=== PATIENT | male | born 1980 | race Caucasian/White ===

== ENCOUNTER 2017-10-07 09:09 | Emergency (ER) | payer BC, SELFPAY ==
[2017-10-07 09:14] VITALS: BP 157/113; PULSE 98; RESP 22; TEMP 36.7; O2SAT 97; BMI 40.5
[2017-10-07 09:15] VITALS: PULSE 77; RESP 18; O2SAT 98
--- NOTE | 2017-10-07 09:21 | DI.RAD.S_ITS ---
PROCEDURE: XR CHEST 2V INDICATIONS: SOB TECHNIQUE: 2 views of the chest were acquired. COMPARISON: None. FINDINGS: Surgical changes and devices: None. Lungs and pleura: No pleural effusions or pneumothorax. Lungs are clear. Mediastinum: Mediastinal contours are normal. Heart size is normal. Bones and chest wall: No suspicious bony abnormalities. Soft tissues appear unremarkable. IMPRESSION: Negative chest. No acute cardiopulmonary process is evident. Dictated by: Tirso Andino M.D. on 10/07/2017 at 9:30 Approved by: Tirso Andino M.D. on 10/07/2017 at 9:31
[2017-10-07 09:25] VITALS: PULSE 83; RESP 18; O2SAT 98
[2017-10-07] MEDS: ALBUTEROL/IPRATROPIUM 3 ML AMPUL INH (09:27)
[2017-10-07] MEDS: ALBUTEROL 2.5 MG/3 ML NEB INH ×2 (09:44)
[2017-10-07] MEDS: predniSONE 20 MG TABLET 40 MG PO (09:54)
--- NOTE | 2017-10-07 10:13 | ED_ITS ---
HPI - SOB/Dyspnea General Chief Complaint: Shortness of Breath/Dyspnea Stated Complaint: BREATHING ISSUES,CHEST PAIN,SHORTNESS OF BREATH Time Seen by Provider: 10/07/17 09:12 Source: patient Mode of arrival: ambulatory Limitations: no limitations History of Present Illness 36-year-old male, otherwise healthy, presents to Emergency with chief complaint of shortness of breath, cough and sharp anterior chest pain since yesterday. His symptoms started after mowing the lawn and he admits to seasonal allergies. He states his cough is worse with a deep breath and his sharp chest pain is worse with a deep breath or motion of his torso. He is not dizzy nor weak or lightheaded. He denies fever or chills. Sometimes his sputum is yellowish MD Complaint: shortness of breath, cough and pain with inspiration Onset (ago): hour(s) Severity: mild Consistency/Duration: constant Relieving factors: bronchodilators Exacerbating factors: coughing and deep breaths Associated symptoms: chest pain, pain with inspiration, cough and wheezing Related Data Home Medications Medication Instructions Recorded Confirmed loratadine [Claritin] 10 mg PO DAILY PRN 10/07/17 10/07/17 Previous Rx's Medication Instructions Recorded albuterol sulfate 2 puff INHALATION Q4-6H PRN #8 gram 10/07/17 inhaler,assist devices,access #1 each 10/07/17 prednisone See Label Instructions PO PER PKG 10/07/17 DIR #21 each Allergies Allergy/AdvReac Type Severity Reaction Status Date / Time No Known Drug Allergies Allergy Verified 10/07/17 09:25 Review of Systems Review of Systems All systems reviewed & are unremarkable except as noted in HPI and below Constitutional Denies chills, Denies fever(s), Denies lethargy and Denies weakness Eyes Denies change in vision, Denies eye discharge, Denies irritation and Denies loss of vision ENT Ears, Nose, Mouth, and Throat: Denies change in voice, Denies neck pain and Denies sore throat Cardiovascular Reports chest pain, Denies irregular heart rhythm, Denies lightheadedness, Denies palpitations, Reports dyspnea, Denies dyspnea on exertion and Denies orthopnea Respiratory Reports change in phlegm color, Reports chest congestion, Reports cough, Reports dyspnea, Denies dyspnea on exertion and Denies wheezing Gastrointestinal Gastrointestinal: Denies abdominal pain, Denies change in bowel habits, Denies diarrhea, Denies nausea and Denies vomiting Genitourinary Denies hematuria, Denies flank pain, Denies urinary incontinence and Denies urinary urgency Musculoskeletal Denies neck pain Integumentary/Breasts Denies pruritus, Denies erythema, Denies rash and Denies wounds Neurologic Denies confusion, Denies loss of vision and Denies weakness Psychiatric Denies anxiety, Denies confusion, Denies depression, Denies homicidal ideation and Denies suicidal ideation Endocrine Denies palpitations Hematologic/Lymphatic Denies easy bruising Allergic/Immunologic Denies wheezing PFSH Social History Smoking Status: Never smoker Exam Narrative Exam Narrative: Pleasant 36-year-old male with some bronchospastic cough in mild distress Initial Vital Signs Initial Vital Signs: Vital Signs Temperature 98.0 F 10/07/17 09:14 Pulse Rate 98 H 10/07/17 09:14 Respiratory Rate 22 10/07/17 09:14 Blood Pressure 157/113 H 10/07/17 09:14 Pulse Oximetry 97 10/07/17 09:14 Const General: cooperative, well developed and in distress Nutritional Appearance: well nourished Orientation: alert, awake, oriented x3 and not confused Eyes General: appearance normal, both eyes and all related structures Eyelids: eyelids normal Conjunctivae: conjunctivae normal Sclera: sclerae normal Pupils: PERRL EOM: EOM intact bilaterally Chest Other: Reproducible, sharp anterior chest pain Resp Effort & Inspection: normal respiratory effort, able to speak in complete sentences, audible wheezes, no respiratory distress and no use of accessory muscles Auscultation: crackles, no rales, no rhonchi and wheezes Cardio Rate: regular rate Rhythm: regular rhythm Heart Sounds: no click, no gallops, no murmurs and no rubs Pulses: normal peripheral pulses Back/Spine/Pelvis Back: No CVA tenderness Cervical Spine: cervical ROM normal and No pain with cervical ROM Thoracic/Lumbar Spine: thoracic and lumbar spine normal to inspection Neuro General: alert, oriented x3, gait normal and no focal motor deficits Speech: speech normal Psych Appearance: well kempt Mental Status: mental status grossly normal Attitude: cooperative Thought Content: normal and suicidality Judgment: judgment good Course Orders Ordered: Discontinued Medications Albuterol (Ventolin) 2.5 mg INH NOW ONE Stop: 10/07/17 09:38 Last Admin: 10/07/17 09:44 Dose: 2.5 mg Albuterol (Ventolin) 2.5 mg INH NOW ONE Stop: 10/07/17 09:40 Last Admin: 10/07/17 09:44 Dose: 2.5 mg Albuterol/Ipratropium (Duoneb) 3 ml INH NOW ONE Stop: 10/07/17 09:21 Last Admin: 10/07/17 09:27 Dose: 3 ml Prednisone (Deltasone) 40 mg PO NOW ONE Stop: 10/07/17 09:21 Last Admin: 10/07/17 09:54 Dose: 40 mg Reevaluation(s) Reevaluation #1: Patient feels tremendous improvement after bronchodilators and steroids. Time: 10:10 Vital Signs - 8 hr 10/07/17 09:14 10/07/17 09:28 Temperature 98.0 F Pulse Rate 98 H 83 Respiratory Rate 22 18 Blood Pressure 157/113 H Pulse Oximetry 97 98 MDM - SOB/Dyspnea ECG Data Attestation: I personally reviewed and interpreted this ECG as follows: Prior ECG tracings: not available for review Interpretation: Normal sinus rhythm at 87 without signs of ectopy or ischemia such as ST elevations or depressions nor T-wave abnormalities MDM Narrative Medical decision making narrative: Patient complains of wheezing and cough as well as reproducible chest pain with cough and deep breath. He has seasonal allergies and was exposed to significant pollen and allergens yesterday. He shows improvement with bronchodilators and steroids. No pneumonia on chest x- ray. Normal sinus rhythm without ischemia on EKG. Discharge Plan Departure Patient Disposition: Home, Self-Care Clinical Impression: Bronchitis with bronchospasm Discharge Date/Time: 10/07/17 10:34 Interventions: ED Discharge Assessment Last Done: 10/07/17 10:33 Instructions: DI for Acute Bronchitis Activity Restrictions/Additional Instructions: *You have been diagnosed with [ bronchitis with bronchospasm ] *What to do: *Take medications as directed. A group of prescriptions have been electronically transmitted to the [facility] in and [employer] at your request *Follow up with your primary care provider in 2-3 days *Return to ER if you should have any new, worsening or concerning symptoms Prescriptions: New prednisone 10 mg tablets,dose pack See Label Instructions PO PER PKG DIR Qty: 21 RF: 0 albuterol sulfate 90 mcg/actuation HFA aerosol inhaler 2 puff INHALATION Q4-6H PRN (Reason: shortness of breath or wheezing) Qty: 8 RF: 0 inhaler,assist devices,access device .ROUTE .MEDSUPPLY Qty: 1 RF: 0 No Action loratadine [Claritin] 10 mg Tablet 10 mg PO DAILY PRN (Reason: Allergy Symptoms) RF: 0
[2017-10-07 10:33] VITALS: BP 135/90; PULSE 90; RESP 20; O2SAT 95
== END 2017-10-07 10:34 | disposition home or self-care (01) ==
PROVIDERS: Emergency Provider Emergency Medicine; PCP Family Medicine
DX: J20.9 Acute bronchitis, unspecified (principal)
CPT/HCPCS: 71046; 93005; 94640; 99282; 99284; J7613

== ENCOUNTER 2019-09-14 20:50 | Emergency (ER) | payer BC, SELFPAY ==
[2019-09-14 21:00] VITALS: BP 141/75; PULSE 105; RESP 20; TEMP 37.5; O2SAT 98; BMI 44.4
--- NOTE | 2019-09-14 21:17 | PC.NURSE ---
repors being on a tractor and noticing a day or so later that his left leg is red and painful on the garcia. He states he has had increasing fatigue with nausea for a few days and started vomiting today. Denies chest pains. states he is able to sleep flat. speaks in full sentences.
[2019-09-14 21:19] LABS: Add Manual Diff / Slide Review NO; Basophils Absolute Auto 100 /uL (0-100); Basophils Percent Auto 0.5 % (0-2); Eosinophils Absolute Auto 0 /uL (0-450); Eosinophils Percent Auto 0.4 % (2-4); Hematocrit 44.1 % (41-53); Hemoglobin 15.4 g/dL (13.5-17.5); Lymphocytes Absolute Auto 1900 /uL (1100-4500); Lymphocytes Percent Auto 15.1 % (25-40); Mean Corpuscular HGB Conc 34.9 % (30-36); Mean Corpuscular Hemoglobin 28.5 PG (26-34); Mean Corpuscular Volume 81.7 fL (80-100); Monocytes Absolute Auto 1100 /uL (0-900); Monocytes Percent Auto 8.5 % (3-14); Neutrophils Absolute Auto 9500 /uL (1500-7000); Neutrophils Percent Auto 75.5 % (50-75); Platelet Count 215 X10^3/uL (150-400); Red Blood Cell Count 5.39 X10^6/uL (4.5-5.9); Red Cell Distribution Width 14.2 % (11.6-14.8); White Blood Cell Count 12.6 X10^3/uL (4.5-11.0)
--- NOTE | 2019-09-14 21:22 | PC.NURSE ---
rash present from sock line to half way up lower leg. Present circumstantially
[2019-09-14] MEDS: KETOROLAC 60 MG/2 ML VIAL 15 MG IV (21:30)
[2019-09-14] MEDS: CEFAZOLIN 1 GM/50 ML FROZ.PIGGY IV (21:31)
[2019-09-14] MEDS: SODIUM CHLORIDE 0.9% 1,000 ML 1000 ML IV (21:31)
[2019-09-14 21:33] LABS: Blood Urea Nitrogen 16 mg/dL (9-20); Carbon Dioxide 27 mmol/L (22-32); Chloride 99 mmol/L (98-107); Estimated Glomerular Filt Rate > 60.0 mL/min (>60); Glucose 141 mg/dL (70-100); HEMOLYSIS < 15 (0-50); Potassium 3.3 mmol/L (3.4-5.1); Sodium 136 mmol/L (137-145)
--- NOTE | 2019-09-14 21:34 | ED_ITS ---
HPI - Fever General Chief Complaint: Fever Stated Complaint: pain/ rash on leg/ vomiting/fever 2xdays Time Seen by Provider: 09/14/19 21:00 Source: family Mode of arrival: Ambulatory Limitations: no limitations History of Present Illness HPI Narrative: 38-year-old male nonsmoker with morbid obesity presents with left leg pain, and redness on his anterior garcia. He has had subjective fever and chills as well as nausea and 1 episode of vomiting. He denies any runny nose, sore throat or cough. He denies any chest pain or shortness of breath. He denies any history of skin infection. He does have some superficial abrasions on his garcia. Related Data Home Medications Medication Instructions Recorded Confirmed loratadine [Claritin] 10 mg PO DAILY PRN 10/07/17 10/07/17 Previous Rx's Medication Instructions Recorded albuterol sulfate 2 puff INHALATION Q4-6H PRN #8 gram 10/07/17 inhaler,assist devices,access #1 each 10/07/17 prednisone See Rx Instructions PO PER PKG DIR 10/07/17 #21 each cephalexin [Keflex] 500 mg PO QID 7 Days #28 cap 09/14/19 ketorolac 10 mg PO Q6H PRN #14 tab 09/14/19 Allergies Allergy/AdvReac Type Severity Reaction Status Date / Time No Known Drug Allergies Allergy Verified 10/07/17 09:25 Review of Systems Constitutional Constitutional: Reports chills, Denies fatigue, Reports fever(s), Denies frequent falls, Denies lethargy and Denies weakness Eyes Eyes: Denies change in vision, Denies eye discharge, Denies irritation and Denies loss of vision ENT Ears, Nose, Mouth, and Throat: Denies change in voice, Denies dizziness, Denies neck pain, Denies sore throat and Denies throat swelling Cardiovascular Cardiovascular: Denies chest pain, Denies irregular heart rhythm, Denies lightheadedness, Denies palpitations, Denies dyspnea, Denies dyspnea on exertion and Denies orthopnea Respiratory Respiratory: Denies cough, Denies dyspnea, Denies dyspnea on exertion and Denies wheezing Gastrointestinal Gastrointestinal: Denies abdominal pain, Denies change in bowel habits, Denies diarrhea, Reports nausea and Reports vomiting Genitourinary Genitourinary: Denies hematuria, Denies flank pain, Denies urinary incontinence and Denies urinary urgency Musculoskeletal Musculoskeletal: Denies back pain, Denies muscle weakness, Denies neck pain, Denies numbness and Denies tingling Integumentary/Breasts Skin/Breast: Denies pruritus, Reports erythema, Denies rash, Reports skin pain and Denies wounds Neurologic Neurologic: Denies behavioral changes, Denies confusion, Denies dizziness, Denies frequent falls, Denies loss of vision, Denies numbness, Denies tingling and Denies weakness Psychiatric Psychiatric: Denies anxiety, Denies behavioral changes, Denies confusion, Denies depression, Denies homicidal ideation and Denies suicidal ideation Endocrine Endocrine: Denies fatigue, Denies flushing and Denies palpitations Hematologic/Lymphatic Hematologic/Lymphatic: Denies easy bruising Allergic/Immunologic Allergic/Immunologic: Denies urticaria, Denies throat swelling and Denies wheezing Patient History Social History Smoking Status: Never smoker Smoking Status: Never smoker alcohol intake frequency: 0-2 drinks per day Substance Use Type: does not use Exam Narrative Exam Narrative: GENERAL: [38] year old patient appears stated age. Well- nourished, well-developed patient, in mild distress. HEAD: Atraumatic. Normocephalic. EYES: Pupils equal round and reactive. Extraocular motions intact. No scleral icterus. No injection or drainage. ENT: Nose without bleeding, purulent drainage. Throat without erythema, tonsillar hypertrophy or exudate. Airway patent. NECK: Trachea midline. Non tender CARDIOVASCULAR: Regular rate and rhythm without murmurs, gallops, or rubs. RESPIRATORY: Clear to auscultation. Breath sounds equal bilaterally. No wheezes, rales, or rhonchi. GASTROINTESTINAL: Abdomen soft, non-tender, nondistended. EXTREMITIES: No edema or joint tenderness. BACK: Nontender without deformity or crepitance. No flank tenderness. NEURO: AOx3. SKIN: Redness warmth and tenderness to left anterior garcia without any induration or fluctuance. No drainage. No lymphangitis. Initial Vital Signs Initial Vital Signs: Vital Signs Temperature 99.5 F 09/14/19 21:00 Pulse Rate 105 H 09/14/19 21:00 Respiratory Rate 09/14/19 21:00 Blood Pressure 141/75 H 09/14/19 21:00 Pulse Oximetry 98 09/14/19 21:00 Course Orders Ordered: Discontinued Medications Sodium Chloride (Normal Saline 0.9%) 1,000 mls @ 1,000 mls/hr IV BOLUS ONE Stop: 09/14/19 22:11 Last Infusion: 09/14/19 22:34 Dose: 0 mls/hr Documented by: Admin: 09/14/19 21:31 Dose: 1,000 mls/hr Documented by: ROB Cefazolin Sodium/Dextrose (Ancef) 1 gm in 50 mls @ 200 mls/hr IV NOW ONE Stop: 09/14/19 21:26 Last Infusion: 09/14/19 21:53 Dose: 0 mls/hr Documented by: Admin: 09/14/19 21:31 Dose: 200 mls/hr Documented by: ROB Ketorolac Tromethamine (Toradol) 15 mg IV NOW ONE Stop: 09/14/19 21:13 Last Admin: 09/14/19 21:30 Dose: 15 mg Documented by: ROB Vital Signs Vital signs: Vital Signs - 8 hr 09/14/19 22:36 Temperature 98.8 F Pulse Rate 81 Respiratory Rate 19 Blood Pressure 121/65 Pulse Oximetry 98 MDM - Fever Lab Data Result diagrams: 09/14/19 21:10 09/14/19 21:10 Labs: Lab Results 09/14/19 09/14/19 09/14/19 Range/Units 21:10 21:10 21:10 WBC 12.6 H (4.5-11.0) X10^3/uL RBC 5.39 (4.5-5.9) X10^6/uL Hgb 15.4 (13.5-17.5) g/dL Hct 44.1 (41-53) % MCV 81.7 (80-100) fL MCH 28.5 (26-34) PG MCHC 34.9 (30-36) % RDW 14.2 (11.6-14.8) % Plt Count 215 (150-400) X10^3/uL Neut % (Auto) 75.5 H (50-75) % Lymph % (Auto) 15.1 L (25-40) % [place] % (Auto) 8.5 (3-14) % Eos % (Auto) 0.4 L (2-4) % Baso % (Auto) 0.5 (0-2) % Neut # (Auto) 9500 H (6626-5794) /uL Lymph # (Auto) 1900 (1544-9650) /uL [place] # (Auto) 1100 H (0-900) /uL Eos # (Auto) 0 (0-450) /uL Baso # (Auto) 100 (0-100) /uL Sodium 136 L (137-145) mmol/L Potassium 3.3 L (3.4-5.1) mmol/L Chloride 99 (98-107) mmol/L Carbon Dioxide 27 (22-32) mmol/L BUN 16 (9-20) mg/dL Creatinine 0.80 (0.66-1.25) mg/dL Estimated GFR > 60.0 (>60) mL/min BUN/Creatinine Ratio 20.0 (6-22) Glucose 141 H (70-100) mg/dL Hemoglobin A1c (4.0-6.0) % Calcium 9.0 (8.4-10.2) mg/dL Procalcitonin 11.81 H (<0.5) ng/mL /18/20 Range/Units 21:10 WBC (4.5-11.0) X10^3/uL RBC (4.5-5.9) X10^6/uL Hgb (13.5-17.5) g/dL Hct (41-53) % MCV (80-100) fL MCH (26-34) PG MCHC (30-36) % RDW (11.6-14.8) % Plt Count (150-400) X10^3/uL Neut % (Auto) (50-75) % Lymph % (Auto) (25-40) % [place] % (Auto) (3-14) % Eos % (Auto) (2-4) % Baso % (Auto) (0-2) % Neut # (Auto) (1913-7887) /uL Lymph # (Auto) (9570-5313) /uL [place] # (Auto) (0-900) /uL Eos # (Auto) (0-450) /uL Baso # (Auto) (0-100) /uL Sodium (137-145) mmol/L Potassium (3.4-5.1) mmol/L Chloride (98-107) mmol/L Carbon Dioxide (22-32) mmol/L BUN (9-20) mg/dL Creatinine (0.66-1.25) mg/dL Estimated GFR (>60) mL/min BUN/Creatinine Ratio (6-22) Glucose (70-100) mg/dL Hemoglobin A1c 6.1 H (4.0-6.0) % Calcium (8.4-10.2) mg/dL Procalcitonin (<0.5) ng/mL Point of Care Testing Glucose POC 112 MDM Narrative Medical decision making narrative: Patient with left anterior garcia cellulitis and fever. The patient is not septic nor immunocompromised. Patient feels much better after above-stated therapies. Return precautions given questions answered to his apparent satisfaction Discharge Plan Departure Patient Disposition: Home Clinical Impression: Cellulitis Qualifiers: Site of cellulitis: extremity Site of cellulitis of extremity: lower extremity Laterality: left Qualified Code(s): L03.116 - Cellulitis of left lower limb Discharge Date/Time: 09/14/19 22:38 Instructions: DI for Cellulitis -- Adult, DI for Fever (Symptom) -- Adult Activity Restrictions/Additional Instructions: *You have been diagnosed with [cellulitis left lower extremity] *What to do: *Take medications as directed *Follow up with your primary care provider in 2-3 days, call for an appointment. Let them know you were seen in the Emergency Department and that we ask that you be seen in follow up *Return to ER if you should have any new, worsening or concerning symptoms Prescriptions: New cephalexin [Keflex] 500 mg capsule 500 mg PO QID 7 Days Qty: 28 RF: 0 ketorolac 10 mg tablet 10 mg PO Q6H PRN (Reason: pain) Qty: 14 RF: 0 No Action loratadine [Claritin] 10 mg Tablet 10 mg PO DAILY PRN (Reason: Allergy Symptoms) RF: 0 prednisone 10 mg tablets,dose pack See Rx Instructions PO PER PKG DIR Qty: 21 RF: 0 albuterol sulfate 90 mcg/actuation HFA aerosol inhaler 2 puff INHALATION Q4-6H PRN (Reason: shortness of breath or wheezing) Qty: 8 RF: 0 (DME) inhaler,assist devices,access device See Dose Instructions .ROUTE .MEDSUPPLY Qty: 1 RF: 0 Referrals: Ragini Faria DO [Primary Care Provider] -
[2019-09-14 21:49] LABS: Hemoglobin A1C% w Est Avg Glu 6.1 % (4.0-6.0); Procalcitonin 11.81 ng/mL (<0.5)
[2019-09-14 22:36] VITALS: BP 121/65; PULSE 81; RESP 19; TEMP 37.1; O2SAT 98
== END 2019-09-14 22:38 | disposition home or self-care (01) ==
PROVIDERS: Emergency Provider Emergency Medicine; PCP Family Medicine
DX: L03.116 Cellulitis of left lower limb (principal); E66.01 Morbid (severe) obesity due to excess calories; R11.2 Nausea with vomiting, unspecified
CPT/HCPCS: 36415; 80048; 82962; 83036; 84145; 85025; 87040; 96365; 96375; 99284; J1885

== ENCOUNTER 2022-11-28 08:01 | Day surgery (SDC) | payer BC, SELFPAY ==
[2022-11-21 12:00] VITALS: BMI 46.9
[2022-11-28] VITALS (9 sets, daily range): BP systolic 103–149; BP diastolic 64–95; PULSE 84–95; RESP 11–20; TEMP 36.5–36.8; O2SAT 91–96; BMI 46.9
--- NOTE | 2022-11-28 | DI.RAD.S_ITS ---
PROCEDURE: XR LUMBAR SPINE 2-3V INDICATIONS: L3-4 LAMINECTOMY TECHNIQUE: 2 views of the lumbar spine were acquired. COMPARISON: None. FINDINGS: Intraoperative fluoroscopic image demonstrate marker overlying posterior L4-5. IMPRESSION: Intraoperative localization. Dictated by: Venessa Foster M.D. on 11/28/2022 at 16:46 Approved by: Venessa Foster M.D. on 11/28/2022 at 16:46
[2022-11-28] MEDS: LACTATED RINGERS 1,000 ML 84 ML IV (09:34)
--- NOTE | 2022-11-28 09:54 | PM.PREOP ---
Pre-operative Note COVID-19 Criteria for continued procedure: Expected advancement of disease process, Possibility delay results in more complex future surgery or treatment, Increased loss of function, Continuing or worsening of significant or severe pain, Deterioration of the patient's condition or overall health and Delay expected to result in less-positive ultimate med/surg outcome Interval Note History & Physical reviewed/Exam performed by Physician: Yes Changes to H&P: No
[2022-11-28] MEDS: CEFAZOLIN 2 GM/100 ML PREMIX 100 ML IV (10:45)
--- NOTE | 2022-11-28 10:54 | SUR.OPER ---
Prone on spine table, head in foam head support, padded chest and pelvic supports, gel pad at knees, lower legs supported by pillows; nipples, genitalia and toes free of pressure, arms secured on foam padded arm boards at <90 degrees abduction. Tape over blanket at thigh secured to table.
[2022-11-28] MEDS: BUPIVACAINE 0.25% W/ EPI (PF) 10 ML VIAL 30 ML INJ (10:55)
--- NOTE | 2022-11-28 11:24 | P.OP_ITS ---
Operative Date/Time/Diagnoses Date of procedure: 11/28/22 Time of procedure: 10:25 Pre-op diagnosis: 1. L3-4 spinal stenosis with neurogenic claudication 2. Epidural lipomatosis Post-op diagnosis: same Procedure & Clinicians Procedure: 1. L3-4 laminectomy with partial facetecmies 2. Utilization of microsurgical technique and operating microscope Same procedure as scheduled: Yes Indications: Patient has been having chronic back pain and worsening lumbar radiculopathy and symptoms of neurogenic claudication. Patient failed multiple conservative management with worsening pain weakness and numbness in his lower extremity. Patient has been having difficulty performing activity of daily living. After discussing risks benefits of treatment options, patient elected proceed with surgery. Surgeon: Kal Ruggiero Food Order Delivery Runner: Phylicia Ball Click Yes if Unassisted: No Anesthesia Type: General Operative Notes Closure Type: primary Specimen(s): none sent Estimated Blood Loss (mL): 5 Blood products transfused: none Procedure in detail: Patient was seen in the preoperative area. Risks and benefits of the surgery was discussed with the patient. Informed consent was obtained from the patient and placed in the chart. Surgical site was marked. Patient was taken to the operative room. General anesthesia was administered. Prophylactic antibiotic was given to the patient less than 30 min before the incision was made. Patient was placed into a prone position on the Royce table. Patient's back was then prepped and draped in the sterile fashion. Time-out was performed at this time. Using AP and lateral C-arm imaging the interval between L3-4 was identified and marked on patient's back. A 1 inch incision 1 in from midline was made on the left side. The fascia was incised in line with skin incision. Globus MARS retractors was placed inside the incision and docked onto the L3 lamina. Using microsurgical technique and operating microscope, a L3 laminectomy was performed using a Kerrison rongeur. Liagamentum flavum was resected at the site of the laminotomy. Either side of the dura was exposed. Bilateral partial facetcomies was performed to further decompress the lateral recess. Patient was found have significant amount of epidural lipomatosis. The epidural lipoma is were resected using pituitary to decompress the thecal sac as well as the exiting nerve roots. After the laminectomy was completed, the area medial lateral superior and inferior to the area of the laminectomy was inspected and explored using a micro curette. No other impinging structure was identified. The wound was then irrigated with sterile normal saline. 40 mg Depo-Medrol was placed into the epidural space. The deep fascia was closed with 1-0 Vicryl. The subcutaneous tissue was closed with 2-0 Vicryl. The skin was closed with skin roldan. Patient tolerated the procedure well. There were no complications. Patient was transferred recovery room in stable condition. Complications: none Post-operative Condition: stable Disposition: PACU Plan for aftercare: Discharge to home
[2022-11-28] MEDS: ONDANSETRON 4 MG/2 ML INJ IV (12:39)
[2022-11-28] MEDS: OXYCODONE IR 5 MG TABLET PO (12:39)
[2022-11-28] MEDS: hydrOXYzine 50 MG/ML INJ IM (12:50)
== END 2022-11-28 13:20 | disposition home or self-care (01) ==
PROVIDERS: PCP Family Medicine; Referring Provider Orthopaedic Surgery Orthopaedic Surgery of the Spine; Visit Provider Orthopaedic Surgery Orthopaedic Surgery of the Spine
PROC: (CPT 63047; principal; 2022-11-28 10:15)
DX: M48.062 Spinal stenosis, lumbar region with neurogenic claudication (principal); M54.16 Radiculopathy, lumbar region; D17.79 Benign lipomatous neoplasm of other sites
CPT/HCPCS: 63047; 72100; 76000; J0330; J0690; J1100; J1170; J1885; J2405; J2704; J2920; J3410

== ENCOUNTER 2023-10-04 07:36 | Emergency (ER) | payer BC, SELFPAY ==
[2023-10-04 07:42] VITALS: BP 142/65; PULSE 74; RESP 18; TEMP 36.5; O2SAT 97; BMI 46.8
--- NOTE | 2023-10-04 08:13 | DI.CT.S_ITS ---
PROCEDURE: CT LUMBAR SPINE WO CON INDICATIONS: Pain post lifting Saturday. TECHNIQUE: Noncontrast 3 mm thick sections acquired from the T12 level to the sacrum. Sagittal and coronal reformats were constructed. For radiation dose reduction, the following was used: automated exposure control. COMPARISON: None. FINDINGS: Image quality: Excellent. Bones: There is normal bony alignment. No acute vertebral body compression fractures. No suspicious lytic or blastic bony lesions. No pars defects. T12-L1: Facet hypertrophy. No canal stenosis or foraminal stenosis. L1-L2: Facet hypertrophy. No canal stenosis or foraminal stenosis. L2-L3: Facet hypertrophy. No canal stenosis or foraminal stenosis. L3-L4: Diffuse disc bulge with peripheral calcifications. Facet hypertrophy. At least moderate canal stenosis. Reference axial images 54 and 55 of series 3. Moderate bilateral foraminal stenosis. L4-L5: Disc bulge. Facet hypertrophy. No significant canal stenosis. Moderate bilateral foraminal stenosis. L5-S1: Facet hypertrophy. No significant canal stenosis. Severe right foraminal narrowing with right foraminal L5 nerve root impingement. Reference sagittal image 36 of series 5. There is moderate to severe left foraminal narrowing. Soft tissues: No retroperitoneal masses or hematomas. Visualized aorta is normal in caliber. IMPRESSION: 1. Multilevel underlying facet arthropathy. 2. There is at least moderate canal stenosis at L3-L4. 3. Multilevel foraminal narrowing as described above. Findings include severe right foraminal narrowing with foraminal nerve root impingement at L5-S1 as well as moderate to severe left foraminal narrowing at that level. Dictated by: Vinay Green M.D. on 10/04/2023 at 8:37 Approved by: Vinay Green M.D. on 10/04/2023 at 8:42
[2023-10-04 08:31] VITALS: PULSE 76; O2SAT 95
[2023-10-04 08:46] VITALS: BP 157/66; PULSE 77; O2SAT 95
[2023-10-04] MEDS: KETOROLAC 30 MG/ML VIAL 15 MG IV (08:54)
[2023-10-04] MEDS: diazePAM 10 MG/2 ML SYRINGE 5 MG IV (08:55)
[2023-10-04 09:00] VITALS: BP 142/64; PULSE 64; O2SAT 93
--- NOTE | 2023-10-04 09:12 | ED_ITS ---
HPI - Back Pain/Injury General Chief Complaint: Back Pain/Injury Stated Complaint: Back Pain Time Seen by Provider: 10/04/23 09:12 Source: patient History of Present Illness HPI Narrative: 42-year-old male with history of L4-L5 laminectomy surgery by orthopedic surgeon Dr. Ruggiero November 2022, when he was having tingling and numbness and weakness to the right leg. He has had same right low lumbar back pain now for 5 days, no specific injury trauma fall. Fortunately so far he has not having the same tingling or numbness to his right leg. No incontinence of urine or stool. He recalls having physical therapy for a while after his surgery, has not had ongoing physical therapy. He is planning on seeing his regular doctor in the next few days. Related Data Home Medications Medication Instructions Recorded Confirmed loratadine 10 mg tablet (Claritin) 10 mg PO DAILY PRN Allergy Symptoms 10/07/17 11/28/22 methocarbamol 500 mg tablet 500 mg PO PRN PRN Spasms 11/28/22 11/28/22 Previous Rx's Medication Instructions Recorded oxycodone 5 mg tablet 5 mg PO Q4H PRN pain #30 tabs 11/28/22 cyclobenzaprine 10 mg tablet 10 mg PO TID #21 tabs 10/04/23 naproxen 500 mg tablet 500 mg PO BID 7 days #14 tabs 10/04/23 tramadol 50 mg tablet 50 mg PO Q6H PRN pain #20 tabs 10/04/23 Allergies Allergy/AdvReac Type Severity Reaction Status Date / Time No Known Drug Allergies Allergy Verified 10/04/23 07:47 Review of Systems Review of Systems Narrative: as per HPI Patient History Medical History (Updated 10/04/23 @ 09:43 by Yandel Fang MD) Fecal retention (2022) Juvenile osteochondrosis of spine Cellulitis of left leg Abnormal liver function test Metabolic syndrome Hemorrhoids Lumbar radiculopathy Urinary retention HTN (hypertension) Surgical History (Updated 11/27/22 @ 08:48 by Joycelyn Grace RN) [place] teeth removed (2007) Social History household members: spouse Smoking Status: Never smoker alcohol intake: current Smoking Status: Never smoker alcohol intake frequency: 0-2 drinks per day Substance Use Type: does not use Exam Narrative Exam Narrative: GENERAL: Well-developed patient, in mild distress. HEAD: Atraumatic. Normocephalic. EYES: Pupils equal round and reactive. Extraocular motions intact. No scleral icterus. No injection or drainage. ENT: Nose without bleeding, purulent drainage. Throat without erythema, tonsillar hypertrophy or exudate. Airway patent. NECK: Trachea midline. Non tender CARDIOVASCULAR: Regular rate and rhythm without murmurs, gallops, or rubs. RESPIRATORY: Clear to auscultation. Breath sounds equal bilaterally. No wheezes, rales, or rhonchi. GASTROINTESTINAL: Abdomen soft, non-tender, nondistended. EXTREMITIES: No edema or joint tenderness. BACK: Right low lumbar back paraspinous muscle tenderness, no midline tenderness. No CVA region tenderness. NEURO: AOx3. No gross motor deficit. SLR 45 degrees right and left sides SKIN: No rash or erythema of visible areas Initial Vital Signs Initial Vital Signs: Vital Signs Temperature 97.7 F 10/04/23 07:42 Pulse Rate 74 10/04/23 07:42 Respiratory Rate 18 10/04/23 07:42 Blood Pressure 142/65 H 10/04/23 07:42 Pulse Oximetry 97 10/04/23 07:42 Oxygen Delivery Method Room Air 10/04/23 07:42 Course Orders Ordered: Discontinued Medications Diazepam (Diazepam 10 Mg/2 Ml Syringe) 5 mg IV NOW ONE Stop: 10/04/23 08:16 Last Admin: 10/04/23 08:55 Dose: 5 mg Documented By: RB Ketorolac Tromethamine (Ketorolac 30 Mg/Ml Vial) 15 mg IV NOW ONE Stop: 10/04/23 08:16 Last Admin: 10/04/23 08:54 Dose: 15 mg Documented By: RB Vital Signs Vital signs: Vital Signs - 8 hr 10/04/23 07:42 10/04/23 08:31 10/04/23 08:46 Temperature 97.7 F Pulse Rate 74 76 77 Respiratory Rate 18 Blood Pressure 142/65 H Pulse Oximetry 97 95 95 Oxygen Delivery Method Room Air 10/04/23 08:46 10/04/23 09:00 10/04/23 09:00 Temperature Pulse Rate 64 Respiratory Rate Blood Pressure 157/66 H 142/64 H Pulse Oximetry 93 Oxygen Delivery Method 10/04/23 09:30 10/04/23 09:30 Temperature Pulse Rate 65 Respiratory Rate Blood Pressure 141/63 H Pulse Oximetry 94 Oxygen Delivery Method MDM - Back Pain/Injury MDM Narrative Medical decision making narrative: 42-year-old with previous L4-L5 laminectomy surgery November 2022, numbness and weakness at that time, had physical therapy for some period of time, none for many months, now with increasing right low back pain for the last few days, no entry trauma. No weakness or numbness so far. Some tenderness right lower lumbar paraspinal musculature. IV Valium, IV Toradol. CT lumbar spine imaging. Patient improved after IV Valium and Toradol. CT lumbar spine noncontrast. Impressions: ?Multilevel underlying facet arthropathy. There is at least moderate canal stenosis at L3-L4. Multilevel foraminal narrowing as described above. Findings include severe right foraminal narrowing with foraminal nerve root impingement at L5-S1 as well as moderate to severe left foraminal narrowing at that level. See radiology report Case discussed with Dr. Alvarez Orthopedic surgery, who agrees with outpatient management for now, consider outpatient MRI, could consider trial of physical therapy, symptomatic medications. Follow up with PCP, to arrange outpatient MRI as needed. And to arrange physical therapy as needed. Critical Care Time Critical Care Time Critical Care Time: Yes Total Critical Care Time: 31 Attestation: The high probability of a clinically significant, sudden or life threatening deterioration of the [spinal, neurologic, musculoskeletal] system(s) required my full and direct attention, intervention and personal management. The aggregate critical care time was [31] minutes. This time is in addition to time spent performing reported procedures but includes the following: [x] Data Review and interpretation [x] Patient assessment and monitoring of vital signs [x] Documentation [x] Medication orders and management Discharge Plan Departure Patient Disposition: Home Clinical Impression: Lumbar strain Instructions: DI for Low Back Pain, DI for Back Pain With Sciatica Activity Restrictions/Additional Instructions: Prior lumbar surgery November 2022 with right-sided numbness and weakness, improved, now with a few days' duration of increasing right low back pain again, no specific fall trauma, so far without the same numbness weakness, CT lumbar spine today showed moderate canal stenosis at L3-L4. Also there was multilevel foraminal narrowing, including more severe right foraminal narrowing at the L5- S1 level as well as moderate to severe left foraminal narrowing at that level. Currently he did not have numbness or weakness symptoms, but you might need further imaging lumbar spine MRI as an outpatient. IV Valium muscle relaxant given. IV Toradol anti-inflammatory pain medication given. Symptoms improved. Consider trial of cyclobenzaprine oral muscle relaxant, consider trial of naproxen anti-inflammatory pain medication. Follow up with your regular provider early next week, could consider resumption of physical therapy adjunctive measures to see if that helps with your right back pain symptoms. Follow up with your orthopedic surgeon Dr. Alvarez. Return to this/nearest emergency department for any change worsening symptoms or any concerns prior Prescriptions: New tramadol 50 mg tablet 50 mg PO Q6H PRN (Reason: pain) Qty: 20 0RF cyclobenzaprine 10 mg tablet 10 mg PO TID Qty: 21 0RF naproxen 500 mg tablet 500 mg PO BID 7 Days Qty: 14 0RF No Action loratadine [Claritin] 10 mg Tablet 10 mg PO DAILY PRN (Reason: Allergy Symptoms) methocarbamol 500 mg Tablet 500 mg PO PRN PRN (Reason: Spasms) oxycodone 5 mg tablet 5 mg PO Q4H PRN (Reason: pain) Qty: 30 0RF Referrals: Kal Ruggiero MD [Physician] - Ragini Faria DO [Primary Care Provider] - Stand Alone Forms: Patient Portal/API
[2023-10-04 09:30] VITALS: BP 141/63; PULSE 65; O2SAT 94
== END 2023-10-04 09:58 | disposition home or self-care (01) ==
PROVIDERS: Emergency Provider Emergency Medicine; PCP Family Medicine
DX: S39.012A Strain of muscle, fascia and tendon of lower back, initial encounter (principal); X58.XXXA Exposure to other specified factors, initial encounter
CPT/HCPCS: 36415; 72131; 96374; 96375; 99284; 99291; J1885; J3360